=== PATIENT | male | born 1965 | race Caucasian/White ===

== ENCOUNTER 2018-06-04 21:37 | Emergency (ER) | payer BC ==
[~2018-06-04] VITALS: Ht 167.6 cm; Wt 74.8 kg
--- OUTSIDE RECORDS SUMMARY | 2018-06-04 21:39 | XMS REPORT | Summary of Care ---
Author Organization Unknown Address Unknown Phone Unavailable Encounter HQ Fermin(NICO) [id number] Date(s): 12/09/13 - 12/09/[address] Discharge Disposition: Home Physician Attending: Jorge Diaz MD Physician_Referring: Jorge Diaz MD Reason for Visit 18240,HERNIATED DISC LUMBAR L4-5 Vital Signs 1 2 3 Most recent to oldest [Reference Range]: 167.64 cm (12/05/13 3:08 PM) Height 138 mmHg (12/09/13 12:45 PM) 138 mmHg (12/09/13 12:30 PM) 132 mmHg (12/09/13 12:15 PM) Systolic Blood Pressure [90-140 mmHg] 89 mmHg (12/09/13 12:45 PM) 89 mmHg (12/09/13 12:30 PM) 86 mmHg (12/09/13 12:15 PM) Diastolic Blood Pressure [60-90 mmHg] 20 BRMIN (12/09/13 12:45 PM) 15 BRMIN (12/09/13 12:30 PM) 21 BRMIN *HI* (12/09/13 12:15 PM) Respiratory Rate [14-20 BRMIN] 86 bpm (12/09/13 12:45 PM) 67 bpm (12/09/13 8:28 AM) Peripheral Pulse Rate [60-100 bpm] 75.114 kg (12/05/13 3:08 PM) Weight 26.73 m2 (12/05/13 3:08 PM) Body Mass Index Problem List Condition Effective Dates Status Health Status Informant Acid Active reflux(Confirmed) Anxiety(Confirmed) Active Back Active pain(Confirmed)1 BP+ - Active Hypertension(Confirm ed) Knee Active pain(Confirmed)2 Pain(Confirmed)3 Active Tear Active meniscus(Confirmed) 1lower back 2right 3rt knee acl Allergies, Adverse Reactions, Alerts Substance Reaction Severity Status codeine stomach ache Active Keflex stomach ache Active Tape Active Medications acetaminophen 1,000 mg, 100 mL, Route: IVPB, Drug form: INJ, ONCE, Dosing Weight 75.114, kg, P RN Pain Score 1-3, Start date: 12/09/13 8:46:00, Duration: 1 doses or times, Sto p date: Limited # of times Notes: Infuse over 15 minutes Do not exceed 4gm/day of acetaminophen Start Date: 12/09/13 Stop Date: 12/09/13 Status: Discontinued albuterol 0.083% inhalation solution 2.49 mg, 3 mL, Route: NEB, Drug form: SOLN, PRN, Dosing Weight 75.114, kg, PRN R espiratory Protocol, Start date: 12/09/13 11:55:00, Duration: 30 day, Stop date: 01/08/14 11:54:00 Notes: SEE RT DOCUMENTATION (Same as: Proventil) Start Date: 12/09/13 Stop Date: 12/09/13 Status: Discontinued Cleocin HCl + Sodium Chloride 0.9% IV 100 mL 900 mg, 6 mL, Route: IVPB, ONCE, Dosing Weight 75.114, kg, Start date: 12/09/13 7:55:00, Stop date: 12/09/13 7:55:00 Notes: (Same As: Cleocin) Start Date: 12/09/13 Stop Date: 12/09/13 Status: Completed ePHEDrine 5 mg, 0.1 mL, Route: IVP, Drug form: INJ, Q5Min, Dosing Weight 75.114, kg, PRN L ow Blood Pressure, Start date: 12/09/13 8:46:00, Duration: 30 day, Stop date: 8:45:00 Notes: (Same as: ePHEDrine Sulfate) Start Date: 12/09/13 Stop Date: 12/09/13 Status: Discontinued flumazenil 0.2 mg, 2 mL, Route: IVP, Drug form: INJ, PRN, Dosing Weight 75.114, kg, PRN Von zodiazepine Reversal, Initial dose, Start date: 12/09/13 8:46:00, Duration: 30 d ay, Stop date: 01/08/14 8:45:00 Notes: (Same as: Romazicon) Start Date: 12/09/13 Stop Date: 12/09/13 Status: Discontinued hydromorphone 0.5 mg, 0.25 mL, Route: IVP, Drug form: INJ, Q5Min, Dosing Weight 75.114, kg, OR N Pain Score 7-10, Start date: 12/09/13 8:46:00, Duration: 4 doses or times, Sto p date: Limited # of times Notes: (Same as: Dilaudid) Start Date: 12/09/13 Stop Date: 12/09/13 Status: Discontinued Lactated Ringers Injection IV 1,000 mL 1,000 mL, Rate: 25 ml/hr, Infuse over: 40 hr, Route: IV, Dosing Weight 75.114 kg , Total Volume: 1,000, Start date: 12/09/13 7:54:00, Duration: 30 day, Stop date : 01/08/14 7:53:00 Start Date: 12/09/13 Stop Date: 12/09/13 Status: Discontinued Lactated Ringers Injection IV 1,000 mL 1,000 mL, Rate: 125 ml/hr, Infuse over: 8 hr, Route: IV, Dosing Weight 75.114 kg , Total Volume: 1,000, Start date: 12/09/13 8:46:00, Duration: 30 day, Stop date : 01/08/14 8:45:00 Start Date: 12/09/13 Stop Date: 12/09/13 Status: Discontinued lidocaine 1% 0.5 mL, Route: INTRADERM, Drug Form: INJ, Dosing Weight 75.114, kg, ONCALL, Star t date: 12/09/13 8:00:00, Duration: 1 doses or times Notes: Preservative free. (Same as: Xylocaine MPF) Start Date: 12/09/13 Stop Date: 12/09/13 Status: Completed morphine Sulfate 2 mg, 0.25 mL, Route: IVP, Drug form: INJ, Q5Min, Dosing Weight 75.114, kg, PRN Pain Score 4-6, Start date: 12/09/13 8:46:00, Duration: 5 doses or times, Stop d ate: Limited # of times Notes: (Same as: MORPhine Sulfate) Start Date: 12/09/13 Stop Date: 12/09/13 Status: Discontinued naloxone 0.04 mg, 0.1 mL, Route: IVP, Drug form: INJ, Q2MIN, Dosing Weight 75.114, kg, OR N Narcotic Reversal, Start date: 12/09/13 8:46:00, Duration: 8 doses or times, S top date: Limited # of times Notes: Same as Narcan Start Date: 12/09/13 Stop Date: 12/09/13 Status: Discontinued [place] 10/325 oral tablet 1 tab, Route: PO, Drug Form: TAB, Dosing Weight 75.114, kg, ONCE, PRN Pain, Star t date: 12/09/13 13:12:00, Stop date: 01/08/14 13:11:00 Start Date: 12/09/13 Stop Date: 12/09/13 Status: Completed [place] 10/325 oral tablet 1-2 tab, PO, Q4-6H, Pain, # 30 tab, 0 Refill(s) Start Date: 12/09/13 Stop Date: 12/14/13 Status: Ordered [place] 5/325 oral tablet 2 tab, PO, PRN, 0 Refill(s) Start Date: 12/05/13 Stop Date: 12/09/13 Status: Discontinued ondansetron 4 mg, 2 mL, Route: IVP, Drug form: INJ, ONCE, Dosing Weight 75.114, kg, PRN Naus ea & Vomiting, Start date: 12/09/13 8:46:00 Notes: (Same as: Zofran) Start Date: 12/09/13 Stop Date: 12/09/13 Status: Discontinued Results ELECTROLYTES Most recent to 1 oldest [Reference Range]: Sodium Lvl [135-145 142 mEq/L mEq/L] (12/05/13 3:52 PM) Potassium Lvl 4.4 mEq/L [3.5-5.1 mEq/L] (12/05/13 3:52 PM) HEMATOLOGY Most recent to 1 oldest [Reference Range]: Hgb [14.0-18.0 g/dL] 14.6 g/dL (12/05/13 3:52 PM) Hct [42.0-54.0 %] 41.6 % *LOW* (12/05/13 3:52 PM) Medications Administered During Your Visit No data available for this section Immunizations No data available for this section Procedures Procedure Type Body Site Date of Procedure Related Diagnosis Epidural steroid injection1 1x 1 Social History Social History Type Response Alcohol Use: Current, Type: Beer, Previous treatment: None Smoking Status Current every day smoker, Type: Cigarettes, Exposure to Tobacco Smoke Lives with someone who smokes, Cigarette Smoking Last 365 Days Yes, Reg Smoking Cessation Counseling Yes
--- OUTSIDE RECORDS SUMMARY | 2018-06-04 21:39 | XMS REPORT | Summary of Care ---
Author Author [facility] Organization [facility] Address Unknown Phone Unavailable Encounter HQ Liliane_gilma(FIN) [id number] Date(s): 03/19/15 - 03/19/15 [facility] [address] [place] [address]- Discharge Disposition: Home Attending Physician: Jorge Diaz MD Admitting Physician: Jorge Diaz MD Vital Signs No data available for this section Problem List Condition Effective Dates Status Health Status Informant Acid Active reflux(Confirmed) Anxiety(Confirmed) Active Back Active pain(Confirmed)1 BP+ - Active Hypertension(Confirm ed) Knee Active pain(Confirmed)2 Pain(Confirmed)3 Active Tear Active meniscus(Confirmed) 1lower back 2right 3rt knee acl Allergies, Adverse Reactions, Alerts Substance Reaction Severity Status codeine stomach ache Active Keflex stomach ache Active Tape Active Medications No data available for this section Results No data available for this section Immunizations No data available for this section Procedures Procedure Date Related Diagnosis Body Site Epidural steroid injection1 Knee2, 3 Skin cancer Tonsillectomy 1x 1 2x 3 3acl repair ,meniscur repair, removal of hardware Social History Social History Type Response Alcohol Current, Type Beer. Previous treatment: None. Smoking Status Current every day smoker; Type: Cigarettes; Lives with someone who smokes; Cigarette Smoking Last 365 Days Yes; Reg Smoking Cessation Counseling Yes Assessment and Plan No data available for this section
--- OUTSIDE RECORDS SUMMARY | 2018-06-04 21:39 | XMS REPORT | CCD ---
Author Author Auto Generated Organization [facility] Address Unknown Phone Unavailable Care Team Providers Care Machine Rope Maker Name Role Phone Jorge Diaz RP Allergies, Adverse Reactions, Alerts Substance Reaction Status codeine stomach ache Active Keflex stomach ache Active Problem List Condition Effective Dates Status Pain1 Active 1rt knee acl Medications Medication Instructions Start Date End Date Status Cleocin HCl 900 mg, 6 mL, Route: IVPB, ONCE, 11/01/2011 11/01/2011 Completed Start date: 11/01/11 8:33:00, Stop date: 11/01/11 8:33:00 Dilaudid 0.5 mg, Route: IVP, ONCE, Start 11/01/2011 11/01/2011 Completed date: 11/01/11 11:45:00, Stop date: 11/01/11 11:45:00 Dilaudid 0.5 mg, Route: IVP, ONCE, Start 11/01/2011 11/01/2011 Completed date: 11/01/11 11:45:00, Stop date: 11/01/11 11:45:00 LR IV 1,000 mL 1,000 mL, Rate: 40 ml/hr, Infuse 11/01/2011 11/01/2011 Discontinued over: 25 hr, Route: IV, Dosing Weight 73.835 kg, Total Volume: 1,000, Start date: 11/01/11 8:12:00, Duration: 30 day, Stop date: 12/01/11 8:11:00 Vital Signs Most recent to oldest [Reference Range]: 1 2 3 Height 167.64 cm (10/25/2011 14:32:00) Temperature Oral [96.4-99.1 DegF] 98.2 DegF (11/01/2011 07:30:00) Systolic Blood Pressure [90-140 mmHg] 118 mmHg (11/01/2011 12:45:00) 119 mmHg (11/01/2011 12:15:00) 118 mmHg (11/01/2011 12:00:00) Diastolic Blood Pressure [60-90 mmHg] 73 mmHg (11/01/2011 12:45:00) 68 mmHg (11/01/2011 12:15:00) 75 mmHg (11/01/2011 12:00:00) Respiratory Rate [14-20 BRMIN] 16 BRMIN (11/01/2011 12:45:00) 12 BRMIN *LOW* (11/01/2011 12:15:00) 14 BRMIN (11/01/2011 12:00:00) Weight 73.835 kg (10/25/2011 14:32:00) Results CHEMISTRY Most recent to oldest [Reference Range]: 1 Sodium Lvl [135-145 mEq/L] 138 mEq/L (10/25/2011 15:00:00) Potassium Lvl [3.5-5.1 mEq/L] 4.8 mEq/L (10/25/2011 15:00:00) HEMATOLOGY Most recent to oldest [Reference Range]: 1 Hgb [14.0-18.0 g/dL] 13.8 g/dL *LOW* (10/25/2011 15:00:00) Hct [42.0-54.0 %] 40.0 % *LOW* (10/25/2011 15:00:00)
--- OUTSIDE RECORDS SUMMARY | 2018-06-04 21:39 | XMS REPORT ---
Author Author [facility] Address Unknown Phone Unavailable Care Team Providers Care Mending Carrier Name Role Phone UNKNOWN, REFERRING PP Unavailable Problems This patient has no known problems. Allergies, Adverse Reactions, Alerts This patient has no known allergies or adverse reactions. Medications This patient has no known medications. Encounters Start Date/Time End Date/Time Encounter Type Admission Type Attending [facility] Care Facility Care Department Encounter ID 2017-03-07 03:13:00 2017-03-07 03:13:00 Emergency [facility] [id number]
--- OUTSIDE RECORDS SUMMARY | 2018-06-04 21:39 | XMS REPORT | CCD ---
Author Author Auto Generated Organization [facility] Address Unknown Phone Unavailable Care Team Providers Care Meat And Seafood Clerk Name Role Phone Jorge Diaz CP Allergies, Adverse Reactions, Alerts Substance Reaction Status Keflex Active
--- OUTSIDE RECORDS SUMMARY | 2018-06-04 21:39 | XMS REPORT | Summary of Care ---
Author Author [facility] Organization [facility] Address Unknown Phone Unavailable Encounter HQ Liliane_gilma(FIN) [id number] Date(s): 01/15/17 - 01/15/17 [facility] [address] [place] [address]- Discharge Disposition: Home or Self Care Attending Physician: Jorge Diaz MD Vital Signs No [...] Knee2, 3 Skin cancer Tonsillectomy 1x 1 2acl repair ,meniscur repair, removal of hardware 3x 3 Social History Social History Type Response Alcohol Current, Type Beer. Previous treatment: None. Smoking Status Current every day smoker; Type: Cigarettes; Lives with someone who smokes; Cigarette Smoking Last 365 Days Yes; Reg Smoking Cessation Counseling Yes Assessment and Plan No data available for this section
--- OUTSIDE RECORDS SUMMARY | 2018-06-04 21:39 | XMS REPORT | CCD ---
Author Author Auto Generated Organization [facility] Address Unknown Phone Unavailable Care Team Providers Care Fiberglass Tube Molder Name Role Phone Jorge Diaz RP Allergies, Adverse Reactions, Alerts Substance Reaction Status codeine stomach ache Active Keflex stomach ache Active Problem List Condition Effective Dates Status Acid reflux Active Anxiety Active BP+ - Hypertension Active Knee pain1 Active Pain2 Active Tear meniscus Active 1right 2rt knee acl Medications Medication Instructions Start Date End Date Status lidocaine 1% 0.5 mL, Route: INTRADERM, Drug 09/11/2012 09/11/2012 Completed Form: INJ, Dosing Weight 76.534, kg, ONCALL, Start date: 09/11/12 9:00:00, Duration: 1 doses or times Lactated Ringers 1,000 mL, Rate: 25 ml/hr, Infuse 09/11/2012 09/11/2012 Discontinued Injection IV 1,000 over: 40 hr, Route: IV, kg, Total mL Volume: 1,000, Start date: 09/11/12 8:34:00, Duration: 30 day, Stop date: 10/11/12 8:33:00 Vicodin 5 mg-300 mg 1 tab, PO, PRN, Substitution 09/10/2012 09/11/2012 Discontinued oral tablet Allowed, Maintenance lisinopril 10 mg 10 mg, 1 tab, PO, Daily, 30 tab, 09/10/2012 Ordered oral tablet Substitution Allowed, TAB Phenergan 12.5 mg, 0.5 mL, Route: IM, Drug 09/11/2012 09/11/2012 Discontinued form: INJ, ONCE, Dosing Weight 76.534, kg, PRN Nausea & Vomiting, Start date: 09/11/12 10:02:00 ondansetron 8 mg, 1 tab, Route: SL, Drug form: 09/11/2012 09/11/2012 Discontinued TABDIS, ONCE, Dosing Weight 76.534, kg, PRN Nausea & Vomiting, Start date: 09/11/12 10:02:00, Nausea and Vomiting meperidine 25 mg, 0.5 mL, Route: IM, Drug 09/11/2012 09/11/2012 Discontinued form: INJ, ONCE, Dosing Weight 76.534, kg, PRN Pain, Start date: 09/11/12 10:02:00, Shivering promethazine + 6.25 mg, 0.25 mL, Route: IVPB, 09/11/2012 09/11/2012 Discontinued Sodium Chloride 0.9% ONCE, Dosing Weight 76.534, kg, PRN IV 50 mL Nausea & Vomiting, Administer if Ondansetron is ineffective., Start date: 09/11/12 10:02:00 morphine Sulfate 2 mg, 1 mL, Route: IVP, Drug form: 09/11/2012 09/11/2012 Discontinued INJ, Q5Min, Dosing Weight 76.534, kg, PRN Pain Score 4-6, Start date: 09/11/12 10:02:00, Duration: 5 doses or times, Stop date: Limited # of times meperidine 10 mg, 0.2 mL, Route: IVP, Drug 09/11/2012 09/11/2012 Discontinued form: INJ, Q10Min, Dosing Weight 76.534, kg, PRN Other -See Comment, For shivering, Start date: 09/11/12 10:02:00, Duration: 5 doses or times, Stop date: Limited # of times hydromorphone 0.5 mg, 0.25 mL, Route: IVP, Drug 09/11/2012 09/11/2012 Discontinued form: INJ, Q15Min, Dosing Weight 76.534, kg, PRN Pain Score 7-10, Start date: 09/11/12 10:02:00, Duration: 4 doses or times, Stop date: Limited # of times ondansetron 4 mg, 2 mL, Route: IVP, Drug form: 09/11/2012 09/11/2012 Discontinued INJ, ONCE, Dosing Weight 76.534, kg, PRN Nausea & Vomiting, Start date: 09/11/12 10:02:00 naloxone 0.04 mg, 0.1 mL, Route: IVP, Drug 09/11/2012 09/11/2012 Discontinued form: INJ, Q2MIN, Dosing Weight 76.534, kg, PRN Narcotic Reversal, Start date: 09/11/12 10:02:00, Duration: 8 doses or times, Stop date: Limited # of times flumazenil 0.2 mg, 2 mL, Route: IVP, Drug 09/11/2012 09/11/2012 Discontinued form: INJ, PRN, Dosing Weight 76.534, kg, PRN Benzodiazepine Reversal, Initial dose, Start date: 09/11/12 10:02:00, Duration: 30 day, Stop date: 10/11/12 11:01:00 Vital Signs Most recent to oldest [Reference Range]: 1 2 3 Height 167.64 cm (09/10/2012 16:08:00) Temperature Oral [96.4-99.1 DegF] 98 DegF (09/11/2012 08:36:00) Systolic Blood Pressure [90-140 mmHg] 118 mmHg (09/11/2012 11:30:00) 111 mmHg (09/11/2012 11:15:00) 112 mmHg (09/11/2012 11:00:00) Diastolic Blood Pressure [60-90 mmHg] 75 mmHg (09/11/2012 11:30:00) 73 mmHg (09/11/2012 11:15:00) 71 mmHg (09/11/2012 11:00:00) Respiratory Rate [14-20 BRMIN] 16 BRMIN (09/11/2012 11:30:00) 16 BRMIN (09/11/2012 11:15:00) 17 BRMIN (09/11/2012 11:00:00) Peripheral Pulse Rate [60-100 bpm] 86 bpm (09/11/2012 11:30:00) 71 bpm (09/11/2012 08:36:00) Weight 76.534 kg (09/10/2012 16:08:00) Results CHEMISTRY Most recent to oldest [Reference Range]: 1 Sodium Lvl [135-145 mEq/L] 139 mEq/L (09/10/2012 16:24:00) Potassium Lvl [3.5-5.1 mEq/L] 4.4 mEq/L (09/10/2012 16:24:00) HEMATOLOGY Most recent to oldest [Reference Range]: 1 Hgb [14.0-18.0 g/dL] 14.6 g/dL (09/10/2012 16:24:00) Hct [42.0-54.0 %] 41.5 % *LOW* (09/10/2012 16:24:00) Microbiology Reports PROCEDURE:Culture: Anaerobic STATUS: In Progress BODY SITE: Knee R COLLECTED DATE/TIME: 09/11/2012 09:51:00 SOURCE: Tissue FREE TEXT SOURCE: PRELIMINARY REPORTS Preliminary Report Culture In Progress PROCEDURE:Culture: Aspirate/Body Fluid/Tissue STATUS: In Progress BODY SITE: Knee R COLLECTED DATE/TIME: 09/11/2012 09:51:00 SOURCE: Tissue FREE TEXT SOURCE: PRELIMINARY REPORTS Preliminary Report No Growth; Holding STAIN REPORTS Stain Report No Wbc'S Or Organisms Seen Procedures Procedures Date Related Diagnosis Knee 1 Skin cancer Tonsillectomy 1x 3
--- OUTSIDE RECORDS SUMMARY | 2018-06-04 21:39 | XMS REPORT | CCD ---
Author Author Auto Generated Organization [facility] Address Unknown Phone Unavailable Care Team Providers Care Lighting Equipment Operator Name Role Phone Jorge Diaz CP Allergies, Adverse Reactions, Alerts Substance Reaction Status codeine stomach ache Active Keflex stomach ache Active Problem List Condition Effective Dates Status Pain1 Active 1rt knee acl Results Microbiology Reports PROCEDURE:Culture: Aspirate/Body Fluid/Tissue STATUS: In Progress BODY SITE: Knee R COLLECTED DATE/TIME: 08/05/2012 17:15:00 SOURCE: Knee Fluid FREE TEXT SOURCE: PRELIMINARY REPORTS Preliminary Report No Growth; Holding STAIN REPORTS Stain Report Few Wbc'S; No Organisms Seen
--- OUTSIDE RECORDS SUMMARY | 2018-06-04 21:39 | XMS REPORT | CCD ---
Author Author Auto Generated Organization [facility] Address Unknown Phone Unavailable Care Team Providers Care Truck Headlight Assembler Name Role Phone Jorge Diaz CP Allergies, Adverse Reactions, Alerts Substance Reaction Status codeine stomach ache Active Keflex stomach ache Active Problem List Condition Effective Dates Status Pain1 Active 1rt knee acl Results Microbiology Reports PROCEDURE:Culture: Aspirate/Body Fluid/Tissue STATUS: In Progress BODY SITE: Knee R COLLECTED DATE/TIME: 08/26/2012 15:00:00 SOURCE: Synovial Fluid FREE TEXT SOURCE: PRELIMINARY REPORTS Preliminary Report No Growth; Holding STAIN REPORTS Stain Report No Wbc'S Or Organisms Seen
[2018-06-04] MEDS ORDERED: METHYLPREDNISOLONE SOD SUCC 125 MG/2ML VIAL ONE (22:07)
[2018-06-04] MEDS ORDERED: METHYLPREDNISOLONE SOD SUCC 125 MG/2ML VIAL IV ONE (22:15)
--- NOTE | 2018-06-05 00:04 | Diagnostic Imaging Report ---
History: Rolled off couch. Bilateral foot numbness. History of lumbar surgery Comparison studies: None Technique: Sagittal, coronal and axial T2 , sagittal T1 and IR, axial spin density oblique. Intravenous contrast: None Findings: Number of lumbar vertebral bodies:5 Alignment: Mild levoscoliosis centered at L4-5.No scoliosis. Soft tissues: No T2 hyperintense inflammatory changes. Paraspinal muscles: No signal abnormalities. No atrophy. Lower thoracic cord:Normal in signal and morphology. The tip of the conus is at T12. Cauda equina: No masses. No arachnoiditis. Vertebrae: Normal in height and signal intensity. No compression fractures, infection or neoplasm. Degenerative changes: L1-L2: No abnormalities. L2-L3: Is degeneration with loss of T2 signal. Diffuse bulge and moderate facet hypertrophy results in no significant canal stenosis or foraminal right facet joint.. L3-L4: Disc degeneration with loss of T2 signal increase into into a space. Diffuse disc bulge, moderate facet hypertrophy and ligamentum flavum thickening results in mild canal stenosis and mild left foraminal narrowing. Trace of fluid at the bilateral facet joints. L4-L5: Disc degeneration with decreased intervertebral space and Modic type I changes. Disc bulge and moderate facet hypertrophy results in mild canal stenosis and mild bilateral foraminal narrowing. Nonvisualization of the right ligamentum flavum related to previous intervention. L5-S1: Disc degeneration with loss of T2 signal. Diffuse disc bulge, facet hypertrophy without significant canal stenosis and mild left foraminal narrowing. Additional findings: None IMPRESSION: No acute lumbar spine abnormality. Mild degenerative canal stenosis at L3-L4 and L4-L5. Mild foraminal narrowing at L3-L4 and L5-S1 on the left and L4-L5 bilaterally. Disc degeneration from L2 through S1 with Modic type I changes at L4-L5. Signed by: DR Dane Delacruz M.D. on 06/05/2018 12:01 AM
[2018-06-05] MEDS ORDERED: ULTRAM50 MG PO (00:16)
[2018-06-05] MEDS ORDERED: ROBAXIN-750750 MG PO (00:18)
== END 2018-06-05 00:27 | disposition home or self-care (01) ==
LOC: ER 21:37
DX: M54.5 Low back pain (principal); S39.012A Strain of muscle, fascia and tendon of lower back, initial encounter; M47.896 Other spondylosis, lumbar region
CPT/HCPCS: 72148; 99284; J2930